=== PATIENT | male | born 1980 | race Caucasian/White ===

== ENCOUNTER 2021-05-18 10:25 | Day surgery (SDC) | payer OTHER ==
[2021-05-18] VITALS (12 sets, daily range): BP systolic 111–158; BP diastolic 86–99; PULSE 61–80; TEMP 98.1
[~2021-05-18] VITALS: Ht 193.2 cm; Wt 125.8 kg
[~2021-05-18 10:25] MED LIST: FLOMAX 0.40.4 MG/CAP PO; MOTRIN 800800 MG/TAB PO; NORCO 325 MG-51 TAB PO; TYLENOL 325MG325 MG PO
[2021-05-18 11:16] LABS: HEMATOCRIT 41.9 % (42.0-52.0); HEMOGLOBIN 14.8 g/dl (13.5-18.0); MEAN CELL VOLUME 84 fl (80.0-100.0); MEAN CORPUSCULAR HEMOGLOBIN 30 pg (27.0-31.0); MEAN CORPUSCULAR HGB CONC 35 g/dl (33.0-37.0); MEAN PLATELET VOLUME 10.6 fl (7.4-10.4); PLATELET COUNT 162 K/mm3 (130-400); RED BLOOD COUNT 4.98 M/mm3 (4.20-5.60); REDCELL DISTRIBUTION WIDTH-CV 13.4 % (11.5-14.5)
[2021-05-18] MEDS ORDERED: BRINTELLIX10 PO (11:18)
[2021-05-18] MEDS ORDERED: HCTZ 25MG TAB25 MG PO (11:19)
[2021-05-18] MEDS ORDERED: PRINIVIL2.5 MG PO (11:19)
[2021-05-18] MEDS ORDERED: PRILOSEC 20MG20 MG PO (11:20)
[2021-05-18] MEDS ORDERED: FOLIC ACID 11 MG/TA1 PO (11:20)
[2021-05-18 11:22] LABS: CALCIUM 9.2 mg/dL (8.4-10.2); CREATININE, serum 1.02 mg/dL (0.72-1.25); POTASSIUM 4.1 mmol/L (3.5-4.5)
[2021-05-18 11:32] LABS: INR 1.1 (0.8-3.0); PROTHROMBIN TIME 12.4 SECONDS (9.7-12.8)
[2021-05-18 11:35] LABS: PARTIAL THROMBOPLASTIN TIME 28.5 SECONDS (26.0-37.0)
--- NOTE | 2021-05-18 12:01 | NUR ---
SEE MERGE FOR ALL MEDICATION ADMINISTRATION TIMES/DOSAGES AND INTRA/POST SEDATION ASSESSMENTS.
--- NOTE | 2021-05-18 12:36 | NUR ---
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 bs report from Yanet PRESSLEY. Pt is awake and alert, no complaints at this time. TR band to rt wrist, cms intact distal. NSR on monitor, resp reg and unlabored. call light in reach. pt updated on poc. wctm
--- NOTE | 2021-05-18 15:45 | NUR ---
pt has done well during his recovery. Pt was able to eat a meal, TR band has been deflated wtih no problem. Site dressed with bandaid, folded 2x2 and coban. cms remains intact distal. pt does report some tingling to lateral aspect of rt thumb at the base of thumb. dressing loosened slightly, and pt advised to contact dr. [place]' office if it is persistent.I reviewed dc/fu instructions with pt who verbalized understanding. Pt denies any questions or concerns about instructions. He is ambulatory in room with steady gait. IV is dc'd with cath intact, dressing is applied. At time of departure, pt is escorted via wheelchair to his 's vehicle.
== END 2021-05-18 18:30 | disposition home or self-care (01) ==
LOC: COL.CAR 10:25
PROVIDERS: Internal Medicine Cardiovascular Disease
DX: R07.89 Other chest pain (principal); I10 Essential (primary) hypertension; R94.39 Abnormal result of other cardiovascular function study; R06.02 Shortness of breath; M79.7 Fibromyalgia; Z79.82 Long term (current) use of aspirin; Z79.899 Other long term (current) drug therapy
CPT/HCPCS: C1769; J1644; J2250; J3010; Q9967

== ENCOUNTER 2024-02-14 08:31 | Day surgery (SDC) | payer OTHER ==
[~2024-02-14] VITALS: Ht 193 cm; Wt 119.8 kg
[~2024-02-14 08:31] MED LIST changes: +BRINTELLIX10 PO; +FOLIC ACID 11 MG/TA1 PO; +HCTZ 25MG TAB25 MG PO; +LR 1,000 ML IV SCH; +Ondansetron 4 MG/2 ML VIAL IV PRN; +PRILOSEC 20MG20 MG PO; +PRINIVIL2.5 MG PO
[2024-02-14] MEDS ORDERED: INDERAL80 MG PO (09:26)
[2024-02-14] MEDS ORDERED: PRINZIDE 12.5 M1 TAB PO (09:27)
[2024-02-14] MEDS ORDERED: PROZAC 20MG20 MG PO (09:28)
[2024-02-14] MEDS ORDERED: ZANAFLEX CAPSULE4 MG PO (09:29)
[2024-02-14] MEDS ORDERED: DEPAKOTE 125MG125 MG PO (09:30)
[2024-02-14] MEDS ORDERED: MAXALT10 MG (09:30)
[2024-02-14] MEDS ORDERED: Lidocaine PF 2% (20 MG/ML) 5 ML VIAL ONE ×2 (10:41→10:53)
[2024-02-14] MEDS ORDERED: fentaNYL 50 MCG/ML 2 ML VIAL ONE (10:41)
[2024-02-14 11:15] VITALS: BP 138/100; PULSE 70; TEMP 97.5
[2024-02-14 11:30] VITALS: BP 135/96; PULSE 72
--- NOTE | 2024-02-14 11:40 | NUR ---
[address] ROOM 2 PER CART. AWAKE, ALERT. RESP UNLABORED. AMBULATES TO RECLINER WITH STANDBY ASSIST. DENIES NAUSEA OR DISCOMFORT. VITAL SIGNS OBTAINED. CALL LIGHT AT SIDE. IN ROOM 1120 TOLERATES PO JUICE WITHOUT NAUSEA. DISCHARGE INSTRUCTIONS REVIEWED. PATIENT VERBALIZES UNDERSTANDING. COPY PROVIDED IN DISCHARGE FOLDER. [address] DR[address] GARVEY HERE TO VISIT WITH PATIENT 1135 DRESSES SELF
[2024-02-14 14:01] VITALS: BP 160/99; PULSE 63; TEMP 98
== END 2024-02-14 11:42 | disposition home or self-care (01) ==
LOC: SDCO 08:31
DX: Z12.11 Encounter for screening for malignant neoplasm of colon (principal); D12.2 Benign neoplasm of ascending colon; I10 Essential (primary) hypertension; Z79.899 Other long term (current) drug therapy; Z79.82 Long term (current) use of aspirin
CPT/HCPCS: J2704; J3010; J7120